=== PATIENT | male | born 1990 | race Caucasian/White ===

== ENCOUNTER 2018-01-02 12:33 | Emergency (ER) | payer OTHER ==
[2018-01-02 12:38] VITALS: BP 121/82; PULSE 72; TEMP 98.6; BMI 29.8
--- NOTE | 2018-01-02 13:27 | PDOC ---
History of Present Illness - General Chief Complaint: Sore Throat Stated Complaint: SORE THROAT Time Seen by Provider: 01/02/18 13:11 History Source: Patient Exam Limitations: No Limitations - History of Present Illness Initial Comments: 01/02/18 14:21 Patient came from home for evaluation of worsening sore throat pain. States onset was approximately 5-6 days ago where he had fevers and chills, body aches and general malaise. Dates took Tylenol and Motrin with some resolved however sore throat pain is progressively worsened where now he has a large swelling and pain. Timing/Duration: 1 week Severity: moderate, severe Associated Symptoms: reports: fever/chills, loss of appetite, malaise Past History - Travel Traveled outside of the country in the last 30 days: No Close contact w/someone who was outside of country & ill: No - Past Medical History Allergies/Adverse Reactions: Allergies Allergy/AdvReac Type Severity Reaction Status Date / Time No Known Allergies Allergy Verified 01/02/18 12:38 Home Medications: Ambulatory Orders Amox-Tr/K Cl [Augmentin - 875Mg Tablet] 1 tab PO BID #20 tablet 01/02/18 COPD: No - Suicide/Smoking/Psychosocial Hx Smoking History: Never smoked Review of Systems - Review of Systems Able to Perform ROS?: Yes Is the patient limited Khmer proficient: Yes Constitutional: Yes: Symptoms Reported, See HPI, Fever, Malaise HEENTM: Yes: Symptoms Reported, See HPI, Throat Pain, Throat Swelling, Difficulty Swallowing Respiratory: Yes: See HPI Musculoskeletal: No: Symptoms Reported All Other Systems: Reviewed and Negative *Physical Exam - Vital Signs Last Vital Signs Temp Pulse Resp BP Pulse Ox 98.6 F 72 18 121/82 99 01/02/18 12:35 01/02/18 12:35 01/02/18 12:35 01/02/18 12:35 01/02/18 12:35 - Physical Exam General Appearance: Yes: Nourished, Appropriately Dressed, Apparent Distress, Moderate Distress HEENT: positive: MARY, TMs Normal, Muffled/Hoarse voice (with enlarged left tonsil / abscess. Uvuvla is not deviated, and airways patent.), Pharyngeal Erythema, Tonsillar Exudate, Tonsillar Erythema, Nasal Congestion. negative: Normal ENT Inspection, Pharynx Normal Neck: positive: Tender, Supple, Lymphadenopathy (R), Lymphadenopathy (L) ( tender bilaterally) Respiratory/Chest: positive: Lungs Clear, Normal Breath Sounds Cardiovascular: positive: Regular Rate Gastrointestinal/Abdominal: positive: Soft. negative: Tender Extremity: positive: Normal Capillary Refill, Normal Inspection, Normal Range of Motion Integumentary: positive: Dry, Warm, Pale Neurologic: positive: slide forming machine tender II-XII NML intact, Fully Oriented, Alert, Normal Mood/ Affect, Normal Response, Motor Strength 5/5 Procedures - Incision and Drainage I&D Site: Left: Other (peritonsillar abscess) Blade Size: 11 Complications: none Progress: 01/02/18 14:45 Incision with minimal drainage to left peritonsillar abscess, some scant amount of pus with scant bleeding. 01/02/18 14:46 Medical Decision Making - Medical Decision Making 01/02/18 14:44 Patient received 600 mg of IV clindamycin, 600 of Motrin by mouth, and will get 10 mg of by mouth Decadron. We'll continue to observe however patient states feels mildly less swollen and with much less pain. *DC/Admit/Observation/Transfer Diagnosis at time of Disposition: Abscess, peritonsillar - Discharge Dispostion Disposition: HOME Condition at time of disposition: Stable Decision to Admit order: No - Prescriptions Prescriptions: Amox-Tr/K Cl [Augmentin - 875Mg Tablet] 1 tab PO BID #20 tablet - Referrals Referrals: Darrius Everett MD [Staff Physician] - - Patient Instructions Printed Discharge Instructions: DI for Peritonsillar Abscess -- Adult Additional Instructions: Rest, drink lots of fluids: Teas, water, soups Eat cold things: Ice cream, ice pops, ice chips Saltwater gargles Steamy showers/seem to face break up mucus Avoid contact with others until fevers and pain resolved Lots of handwashing and good hygiene, this is contagious You have been treated with clindamycin 600 mg injection and she will continue with Augmentin anabiotic one pill twice a day for 10 days. Tylenol or Motrin for fever and pain Followup with private physician in one to 2 days as needed if not improving Return to emergency department for worsened symptoms, fevers, dehydration, worsening swelling or pain, difficulty swallowing or airway problems. - Post Discharge Activity Forms/Work/School Notes: Back to Work
[2018-01-02] MEDS ORDERED: IBUPROFEN 600 MG TABLET (FP) PO ONE ×2 (13:58→14:10)
[2018-01-02] MEDS ORDERED: CLINDAMYCIN 600MG PREMIX IVPB 600 MG/50 ML BAG IVPB ONE ×2 (14:08→14:10)
[2018-01-02] MEDS ORDERED: DEXAMETHASONE SOD PHOSPHATE 10 MG/1 ML VIAL IM ONE (14:42)
[2018-01-02] MEDS ORDERED: DEXAMETHASONE SOD PHOSPHATE 10 MG/1 ML VIAL ONE (14:44)
== END 2018-01-02 15:05 | disposition home or self-care (01) ==
LOC: JERFT 12:33
PROC: 3E0233Z Introduction of Anti-inflammatory into Muscle, Percutaneous Approach (ICD-10-PCS; principal; 2018-01-02)
PROC: 3E03329 Introduction of Other Anti-infective into Peripheral Vein, Percutaneous Approach (ICD-10-PCS; 2018-01-02)
PROC: 0C9P0ZZ Drainage of Tonsils, Open Approach (ICD-10-PCS; 2018-01-02)
DX: J36 Peritonsillar abscess (principal)
CPT/HCPCS: 87070; 87077; 87186; 87205; 87430; 99281-25; J1100

== ENCOUNTER 2021-05-06 01:11 | Emergency (ER) | payer SELFPAY ==
[2021-05-06 01:25] VITALS: BP 117/82; PULSE 84; TEMP 98.6; BMI 24.2
[2021-05-06] MEDS ORDERED: FLUORESCEIN NA 1 EA STRIP OD ONE (01:53)
[2021-05-06] MEDS ORDERED: FLUORESCEIN NA 1 EA STRIP ONE (01:57)
[2021-05-06] MEDS ORDERED: TETRACAINE 0.5% OPHTH SOLN 2 ML BOTTLE ONE (01:58)
[2021-05-06] MEDS ORDERED: ERYTHROMYCIN 0.5% OPHTHALMIC OINTMENT 3.5 GM TUBE OD ONE ×2 (02:17→02:19)
[2021-05-06] MEDS ORDERED: ERYTHROMYCIN 0.5% OPHTHALMIC OINTMENT 3.5 GM TUBE ONE ×2 (02:18→02:19)
== END 2021-05-06 02:25 | disposition home or self-care (01) ==
LOC: JER 01:11
DX: S05.01XA Injury of conjunctiva and corneal abrasion without foreign body, right eye, initial encounter (principal); W45.8XXA Other foreign body or object entering through skin, initial encounter
CPT/HCPCS: 99283-25